=== PATIENT | male | born 1960 | race Caucasian/White ===

== ENCOUNTER 2022-10-02 22:54 | Inpatient (IN) | payer OTHER ==
[~2022-10-02] VITALS: Ht 170.2 cm; Wt 80.9 kg
[2022-10-02] MEDS ORDERED: ESCI5TAB PO (23:03)
[2022-10-02] MEDS ORDERED: OLAN2.5T3 PO (23:03)
[2022-10-02] MEDS ORDERED: BUPR174T PO (23:03)
[2022-10-02 23:20] LABS: HEMATOCRIT 27.5 % (36.7-47.1); MEAN CORPUSCULAR HEMOGLOBIN 31.2 uug (23.8-33.4); MEAN CORPUSCULAR VOLUME 91.9 fL (73.0-96.2); PLATELET COUNT (AUTO) 276 K/uL (152-348)
[2022-10-02 23:48] LABS: ALANINE AMINOTRANSFERASE 13 U/L (16-63); ALKALINE PHOSPHATASE 75 U/L (50-136); ASPARTATE AMINOTRANSFERASE 16 U/L (15-37); BILIRUBIN,DIRECT 0.2 mg/dL (0.0-0.2); BILIRUBIN,TOTAL 0.5 mg/dL (0.2-1.0); CARBON DIOXIDE 12 mmol/L (21-32); CHLORIDE 91 mmol/L (98-107); GLUCOSE 89 mg/dL (74-106); TOTAL PROTEIN, SERUM 7.6 g/dL (6.4-8.2)
--- NOTE | 2022-10-02 23:50 | NUR ---
Patient taken to CT via gurney.
[2022-10-02 23:51] LABS: POTASSIUM 6.6 mmol/L (3.5-5.1); UREA NITROGEN, BLOOD 217 mg/dL (7-18)
[2022-10-02 23:52] LABS: CREATININE 26.9 mg/dL (0.6-1.3)
[2022-10-03] MEDS ORDERED: INSULIN REGULAR, HUMAN 300 UNIT/3 ML VIAL IV ONE
[2022-10-03] MEDS ORDERED: CALCIUM GLUCONATE IV 1 GM in IV DEXTROSE 5% 50 ML IV ONE ×2
[2022-10-03] MEDS ORDERED: SODIUM BICARBONATE 4.2 % (NEUT) 5 ML VIAL IJ ONE
[2022-10-03] MEDS ORDERED: DEXTROSE 50% 50 ML DISP.SYRIN IV ONE
[2022-10-03] MEDS ORDERED: CALCIUM GLUCONATE 1 GM/10 ML VIAL IV ONE (00:06)
[2022-10-03] MEDS ORDERED: DEXTROSE 50% 50 ML DISP.SYRIN ONE (00:06)
[2022-10-03] MEDS ORDERED: INSULIN REGULAR, HUMAN 300 UNIT/3 ML VIAL ONE (00:06)
[2022-10-03 00:23] LABS: ACETAMINOPHEN < 2.0 ug/mL (10-30); CREATINE KINASE, TOTAL 139 U/L (39-308)
[2022-10-03 00:33] LABS: MAGNESIUM 2.7 mg/dL (1.8-2.4)
--- NOTE | 2022-10-03 00:33 | NUR ---
Per Dr. Blevins, Sodium Bicarbonate 4.2% 5ml vial order cancelled.
--- NOTE | 2022-10-03 00:35 | NUR ---
Per Dr. Blevins given verbal order to administer Sodium Bicarbonate 8.4% 50MEQ IV.
[2022-10-03] MEDS ORDERED: SODIUM BICARBONATE 8.4% 50 MEQ/50 ML DISP.SYRIN IV ONE ×4 (00:37→02:46)
--- NOTE | 2022-10-03 01:00 | NUR ---
Patient and patient's brother unable to recall home medications at this time.
--- NOTE | 2022-10-03 01:33 | NUR ---
Called [facility] for panel call. Waiting for call back. Pending admission
[2022-10-03] MEDS ORDERED: ONDANSETRON 4 MG/2 ML VIAL IV PRN (01:45)
[2022-10-03] MEDS ORDERED: MAGNESIUM HYDROXIDE 30 ML LIQUID UDC PO PRN (01:45)
[2022-10-03] MEDS ORDERED: REMEDY ESSENTIAL ZINC PASTE 113 GM TP PRN (01:45)
--- NOTE | 2022-10-03 01:57 | NUR ---
Rony annelulu in [facility] - 10/03/22 at 0207 by AZALIA Patient has been admitted to third floor [place] [id number]
[2022-10-03] MEDS ORDERED: SODIUM POLYSTYRENE SULFONATE 15 G/60 ML LIQUID UDC PO ONE (02:00)
--- NOTE | 2022-10-03 02:04 | NUR ---
Called for nephrology consult. Waiting for call back from Dr. Uribe.
--- NOTE | 2022-10-03 02:07 | NUR ---
Patient will need [facility] bed. Waiting call back from Industrial Cleaner Meryl KELLY for room.
[2022-10-03] MEDS ORDERED: IV NS 1000 ML 1,000 ML IV ONE (02:15)
--- NOTE | 2022-10-03 02:35 | NUR ---
Patient pulled out previous IV catheter. Placed a new IV catheter to right AC #20G
[2022-10-03] MEDS ORDERED: SODIUM POLYSTYRENE SULFONATE 15 G/60 ML LIQUID UDC ONE (02:46)
--- NOTE | 2022-10-03 03:37 | NUR ---
Report given to Camacho KELLY
--- NOTE | 2022-10-03 03:37 | NUR ---
Received admission report from ROSALIO Rosas nurse.
--- NOTE | 2022-10-03 03:38 | NUR ---
Patient has been admitted to room 316 Y[facility]ENIA
--- NOTE | 2022-10-03 03:54 | NUR ---
Patient sleepy unable to take Kayexalate PO. Dr. Blevins aware. Ordered cancelled per Dr. Blevins.
--- NOTE | 2022-10-03 04:20 | NUR ---
Patient arrived in the floor from ER via gurney accompanied by his brother at the bedside. Patient eyes closed, non verbal, not in respiratory distress. Transferred to bed with 3 people assist. Noted moderate amount of red blood stain in the linen due to HD catheter placement on right groin area. Bed bath rendered, tolerated well. Placed on cardiac monitoring as ordered showing SR 86bpm at this time. Routine admission care done. Plan of care initiated. Vs taken and recorded.
--- NOTE | 2022-10-03 04:28 | NUR ---
Patient taken to third floor room 316 via gurney with personal belongings accompanied by brother. Patient in stable condition, no signs of distress. Camacho RN aware of patients arrival.
[2022-10-03] MEDS: IV 1/2NS 1000 ML 1,000 ML IV PRN ×2 (05:19→19:05)
--- NOTE | 2022-10-03 05:26 | NUR ---
HD in progress as ordered.
[2022-10-03 06:19] VITALS: BP 110/64
[2022-10-03 07:21] LABS: POTASSIUM 3.5 mmol/L (3.5-5.1)
--- NOTE | 2022-10-03 07:52 | NUR ---
Lethargic. Hemodialysis just finished, with 2 L output. Tele SR
[2022-10-03 07:58] VITALS: BP 108/81
[2022-10-03 08:55] LABS: CREATININE 19.7 mg/dL (0.6-1.3)
[2022-10-03 09:57] VITALS: BP 138/57
--- NOTE | 2022-10-03 11:00 | NUR ---
More awake, assisted to bedside commode as requested but no BM. Sponge bath given. Assisted back to bed. Brother at bedside. Bed alarm on.
[2022-10-03 12:10] VITALS: BP 149/83
--- NOTE | 2022-10-03 12:30 | NUR ---
Encouraged po intake. Able to feed himself
--- NOTE | 2022-10-03 14:00 | NUR ---
Continent, attempted to get up, urinal provided, voided freely.
[2022-10-03 16:00] VITALS: BP 145/77
--- NOTE | 2022-10-03 18:43 | NUR ---
Eating dinner. Awake, alert, oriented x 2. Room air. Not in distress.
--- NOTE | 2022-10-03 19:30 | NUR ---
Received in bed, brother at bedside, no sob no chest pain, tele sinus rhythm at this time, Patient sleep intermitently, patient appear calms, and cooperative with care, right femoral perma cath dressing intact, assisted with toileting, cont to monitor.
[2022-10-03 20:00] VITALS: BP 131/76
--- NOTE | 2022-10-03 23:00 | NUR ---
Patient in bed noted with restlessness, appear having anxiety, episode of shaking, asked patient if he's juana, Explained to patient that he appear to having anxiety/nervous about something, patient stated he does not to take any medications, assisted with toileting, call light within reach.
[2022-10-04] VITALS: BP 132/78
[2022-10-04 04:00] VITALS: BP 140/77
[2022-10-04] MEDS: IV 1/2NS 1000 ML 1,000 ML IV PRN ×4 (04:00→22:48)
[2022-10-04 07:30] LABS: BILIRUBIN,TOTAL 0.5 mg/dL (0.2-1.0); MAGNESIUM 2.2 mg/dL (1.8-2.4); POTASSIUM 5.3 mmol/L (3.5-5.1)
[2022-10-04 07:58] LABS: MEAN CORPUSCULAR HEMOGLOBIN 31.7 uug (23.8-33.4)
[2022-10-04 08:00] VITALS: BP_SYST 120; BP_SYST 133; BP_DIAS 66; BP_DIAS 71
[2022-10-04 08:00] LABS: MEAN CORPUSCULAR VOLUME 90.8 fL (73.0-96.2); PLATELET COUNT (AUTO) 175 K/uL (152-348)
--- NOTE | 2022-10-04 08:00 | NUR ---
Received patient lying on bed, awake, alert and responding to simple question like name, date. With ongoing IVF of 1/2 NS @ 120cc/hr. on renal diet. Denies any pain and discomfort. Seen by Dr. Hooper. for possible dialysis today, awaiting lab results.
[2022-10-04 08:20] LABS: HEMATOCRIT 20.9 % (36.7-47.1)
[2022-10-04 08:21] LABS: CREATININE 19.8 mg/dL (0.6-1.3); PHOSPHOROUS 11.4 mg/dL (2.5-4.9)
--- NOTE | 2022-10-04 08:30 | NUR ---
Relayed 5 critical laboratory results to Dr. Menendez, continue current treatments.
[2022-10-04 10:39] LABS: *BILIRUBIN,URIN NEGATIVE (NEGATIVE); *BLOOD, URINE 2+ (NEGATIVE); *CLARITY,URINE CLEAR (CLEAR); *COLOR,URINE YELLOW (YELLOW); *KETONES,URINE 2+ (NEGATIVE); *UROBILINOGEN,URINE 0.2 E.U./dl (NORMAL); LEUKOCYTE ESTERASE ,URINE 1+ (NEGATIVE); NITRITE, URINE NEGATIVE (NEGATIVE); PH,URINE 5.5 (5.0-8.0); UGLUCOSE NEGATIVE (NEGATIVE)
[2022-10-04 11:10] LABS: *CREATININE,URINE 59.4 mg/dL (30-125); *URINE TOTAL PROTEIN RANDOM 66.3 mg/dL (<150/24HR)
[2022-10-04 11:26] LABS: *AMPHETAMINE, URINE NEGATIVE (NEGATIVE); *CANNABINOID, URINE NEGATIVE (NEGATIVE); *COCCAINE, URINE NEGATIVE (NEGATIVE); *PHENCYCLIDINE SCREEN,URINE NEGATIVE (NEGATIVE)
--- NOTE | 2022-10-04 12:00 | NUR ---
Awaiting for dialysis, supervisor putty and caluking on duty made aware. Seen and examined by Dr. Brown
[2022-10-04] MEDS: SEVELAMER CARBONATE 800 MG TABLET PO SCH ×2 (13:36→18:00)
[2022-10-04 16:00] VITALS: BP 116/56
--- NOTE | 2022-10-04 17:00 | NUR ---
Patient remains confused, trying to remove IV lines and dialysis catheter.
--- NOTE | 2022-10-04 17:30 | NUR ---
Applied mittens of patient's both hands, observed patient accordingly. Needs attended
[2022-10-04 18:10] LABS: RBC,URINE 20-50 /HPF (0-3)
[2022-10-04 18:11] LABS: BACTERIA,URINE FEW /HPF (NONE SEEN); SQUAMOUS EPITHELIAL CELL,UR NONE SEEN /HPF (NONE SEEN)
[2022-10-04] MEDS ORDERED: MANNITOL 25% 12.5 G/50 ML VIAL IV ONE (18:30)
--- NOTE | 2022-10-04 18:53 | NUR ---
Started hemo dialysis at bedside and mannitol given at the start of HD as ordered.
--- NOTE | 2022-10-04 19:58 | NUR ---
rounds made patient in bed having dialysis , spoked with dialysis nurse and as per Zeeshan patient is tolerating HD .
[2022-10-04 20:00] VITALS: BP 144/116
--- NOTE | 2022-10-04 21:40 | NUR ---
patient tolerated HD with 2L fluid removal . V/S WNL SEE HD FLOW SHEET.
--- NOTE | 2022-10-04 21:50 | NUR ---
patient incontinent of stool changed soiled linens ,gown and diaper . patient had large form brownish colored stool .
--- NOTE | 2022-10-04 23:00 | NUR ---
patient in bed awake,alert x1 , patient able to follow simple commands and verbally responsive . when asked patient denies pain no s/s of discomfort no respiratory distress noted breathing even and unlabored on room air .call Light placed with in reach and urinal placed with in reach advised patient to call for assistance.
[2022-10-05] VITALS (8 sets, daily range): BP systolic 96–142; BP diastolic 55–78
[2022-10-05] MEDS: ACETAMINOPHEN 325 MG TABLET PO PRN ×2 (03:40→21:36)
--- NOTE | 2022-10-05 03:40 | NUR ---
given TYLENOL C/O temp 99.7 F orally , patient took medication with applesauce and sips of water .
[2022-10-05 07:25] LABS: BILIRUBIN,TOTAL 0.5 mg/dL (0.2-1.0); MAGNESIUM 1.8 mg/dL (1.8-2.4); PHOSPHOROUS 6.9 mg/dL (2.5-4.9); POTASSIUM 3.9 mmol/L (3.5-5.1); TOTAL PROTEIN, SERUM 5.7 g/dL (6.4-8.2)
--- NOTE | 2022-10-05 07:42 | NUR ---
Received patient on bed awake, alert, answered simple questions and follows simple commands. With ongoing IVF 1/2 NS @ 75cc/hr on renal standard diet, with mittens on both hands. Observed and assessed.
[2022-10-05 07:59] LABS: MEAN CORPUSCULAR HEMOGLOBIN 31.7 uug (23.8-33.4); MEAN CORPUSCULAR VOLUME 89.9 fL (73.0-96.2); PLATELET COUNT (AUTO) 165 K/uL (152-348)
[2022-10-05 08:10] LABS: CREATININE 13.5 mg/dL (0.6-1.3)
--- NOTE | 2022-10-05 09:50 | NUR ---
Seen and examined by Dr. Brown, with orders made and carried out. Patient for dialysis and blood transfusion recent hgb results is 6.7, MD made aware.
[2022-10-05] MEDS: SEVELAMER CARBONATE 800 MG TABLET PO SCH ×3 (10:23→17:36)
--- NOTE | 2022-10-05 12:25 | NUR ---
Started hemo dialysis at bedside. Observed accordingly.
[2022-10-05] MEDS: IV 1/2NS 1000 ML 1,000 ML IV PRN (12:30)
[2022-10-05 13:06] LABS: A/G RATIO 0.9 (0.7-1.7); ALBUMIN 2.6 g/dL (2.9-4.4); ALPHA-1-GLOBULIN 0.3 g/dL (0.0-0.4); ALPHA-2-GLOBULIN 0.7 g/dL (0.4-1.0); BETA GLOBULIN 0.7 g/dL (0.7-1.3); GAMMA GLOBULIN 1.1 g/dL (0.4-1.8); GLOBULIN, TOTAL 2.9 g/dL (2.2-3.9); M-SPIKE Not Observed g/dL (Not Observed)
--- NOTE | 2022-10-05 14:02 | NUR ---
Blood transfusion started through dialysis. Patient closely monitored for any blood reactions. Vital signs taken and recorded.
--- NOTE | 2022-10-05 14:33 | NUR ---
Completed blood transfusion via dialysis, no reaction noted. Monitored patient accordingly. Vitals taken and recorded. Seen and examined by Dr. Hooper, ordered to continue home medications.
--- NOTE | 2022-10-05 14:55 | NUR ---
HEMODIALYSIS COMPLETED AND REMOVED 1500 OF FLUID. VITAL SIGNS STABLE TOLERATED HD WELL
[2022-10-05] MEDS ORDERED: BUPR174T PO (15:34)
--- NOTE | 2022-10-05 15:45 | NUR ---
PATIENT PULLED CUSTODIAL MIN CATH RIGHT GROIN, FIBER GLASS WORKER NOTIFIED AND WILL NOTIFY THE TEAM. PATIENT CLOSELY MONITORED FOR SAFETY. BROTHER AT BEDSIDE AND AGREED PATIENT TO HAVE MITTENS IF NEEDED. DR SCHAEFER AROUND AND AWARE
--- NOTE | 2022-10-05 17:48 | NUR ---
DONNA BELL FROM IV TEAM WILL COME AT 11;00 PM FOR REINSERTION
--- NOTE | 2022-10-05 20:00 | NUR ---
Received patient lying in bed. AAOx1-2 with periods of confusion. In no acute distress. Denies any pain or SOB. IV on right AC intact and patent. IVF infusing. NSR on tele with HR of 90/min. Steve cath on right groin area. Hand mittens released at this time. No behavioral issues noted at this time. Will continue to monitor. Safety measure initiated and call light within reached.
[2022-10-05] MEDS: OLANZAPINE 5 MG TABLET PO SCH (20:19)
[2022-10-05] MEDS: ESCITALOPRAM OXALATE 10 MG TABLET PO SCH (20:19)
[2022-10-05 22:01] LABS: LYMPHOCYTES % (MANUAL) 13 % (20-40); MONOCYTES % (MANUAL) 9 % (2-10); NEUTROPHILS % (MANUAL) 78 % (42-75)
[2022-10-06] VITALS (7 sets, daily range): BP systolic 87–128; BP diastolic 47–79
--- NOTE | 2022-10-06 01:48 | NUR ---
Rakan KELLY Spoke to patient's brother Ed and obtain consent for Dialysis catheter replacement, witnessed by this nurse and ROBIN Guerrero. Rakan KELLY placed new Steve catheter on right groin area.
[2022-10-06] MEDS: IV 1/2NS 1000 ML 1,000 ML IV PRN ×2 (04:31→17:02)
--- NOTE | 2022-10-06 05:24 | NUR ---
Sleeping at this time. No complain of pain or SOB. IVF infusing. NSR on tele with HR of 82/min. No behavioral issues noted. Mittens released through put the night. Needs assessed and attended to. Safety measure maintained and call light within reached.
[2022-10-06 06:55] LABS: HEMATOCRIT 22.7 % (36.7-47.1); MEAN CORPUSCULAR HEMOGLOBIN 31.4 uug (23.8-33.4); MEAN CORPUSCULAR VOLUME 91.3 fL (73.0-96.2); PLATELET COUNT (AUTO) 151 K/uL (152-348)
[2022-10-06 07:15] LABS: POTASSIUM 3.2 mmol/L (3.5-5.1)
--- NOTE | 2022-10-06 07:40 | NUR ---
SEEN BY DR CASTRO FOR F/U PATIENT STATUS CHANGE TO MED/SURG
[2022-10-06 08:06] LABS: COMPLEMENT, C3 SERUM 89 mg/dL (82-167); COMPLEMENT, C4 SERUM 40 mg/dL (12-38)
[2022-10-06 08:30] LABS: CREATININE 8.1 mg/dL (0.6-1.3)
[2022-10-06] MEDS: SEVELAMER CARBONATE 800 MG TABLET PO SCH ×3 (08:37→16:40)
[2022-10-06] MEDS: buPROPion SR 150 MG TABLET.SA PO SCH (08:37)
--- NOTE | 2022-10-06 09:30 | NUR ---
SEEN BY DR EDUARDO MADE AWARE OF CRITICAL LAB RESULTS AND SAID HD TOMORROW
[2022-10-06 13:07] LABS: *ANTI-SCLERODERMA-70 AB <0.2 AI (0.0-0.9); *SJOGREN'S ANTI-SS-A <0.2 AI (0.0-0.9); *SJOGREN'S ANTI-SS-B <0.2 AI (0.0-0.9); *SMITH ANTIBODIES <0.2 AI (0.0-0.9); ANTI-DNA(DS) AB, QN 1 IU/mL (0-9)
[2022-10-06] MEDS: ENSURE ENLIVE (VAN) 240 ML LIQUID PO SCH ×2 (13:48→16:42)
--- NOTE | 2022-10-06 14:03 | NUR ---
PATIENT MORE ALERT AND RESPONDING APPROPRIATELY WITH SIMPLE QUESTIONS APPROPRIATELY. INDEPENDENT WITH MEALS NO SS OF PAIN OR DISTRESS
[2022-10-06 14:06] LABS: ALBUMIN 2.7 g/dL (2.9-4.4); ALPHA-1-GLOBULIN 0.3 g/dL (0.0-0.4); ALPHA-2-GLOBULIN 0.9 g/dL (0.4-1.0); BETA GLOBULIN 0.8 g/dL (0.7-1.3); GAMMA GLOBULIN 0.6 g/dL (0.4-1.8); GLOBULIN, TOTAL 2.6 g/dL (2.2-3.9); HEPATITIS B SURFACE AG Negative (Negative); M-SPIKE Not Observed g/dL (Not Observed)
[2022-10-06] MEDS ORDERED: IV NORMAL SALINE 500 ML BAG IV ONE (20:45)
[2022-10-06] MEDS: OLANZAPINE 5 MG TABLET PO SCH (21:00)
[2022-10-06] MEDS: ESCITALOPRAM OXALATE 10 MG TABLET PO SCH (21:00)
[2022-10-07 05:46] VITALS: BP 106/54
--- NOTE | 2022-10-07 08:00 | NUR ---
Received patient on bed awake, alert and oriented with ongoing IVF of 1/2 NS at 75 cc/hr infusing well. Denies any pain and discomfort. Kept patient comfortable. Medications tolerated well.
[2022-10-07 08:08] LABS: HEMATOCRIT 23.3 % (36.7-47.1); MEAN CORPUSCULAR HEMOGLOBIN 31.2 uug (23.8-33.4); MEAN CORPUSCULAR VOLUME 92.2 fL (73.0-96.2); PLATELET COUNT (AUTO) 139 K/uL (152-348)
[2022-10-07 08:21] LABS: BILIRUBIN,TOTAL 0.3 mg/dL (0.2-1.0); POTASSIUM 3.3 mmol/L (3.5-5.1); TOTAL PROTEIN, SERUM 5.3 g/dL (6.4-8.2)
[2022-10-07 08:24] LABS: CREATININE 9.4 mg/dL (0.6-1.3)
[2022-10-07] MEDS: buPROPion SR 150 MG TABLET.SA PO SCH (08:30)
[2022-10-07] MEDS: ENSURE ENLIVE (VAN) 240 ML LIQUID PO SCH (08:31)
[2022-10-07] MEDS: SEVELAMER CARBONATE 800 MG TABLET PO SCH ×3 (08:31→18:09)
[2022-10-07] MEDS: IV 1/2NS 1000 ML 1,000 ML IV PRN (08:37)
[2022-10-07 11:40] VITALS: BP 130/70
--- NOTE | 2022-10-07 14:28 | NUR ---
Seen patient asleep on bed, resting comfortably. IVF infusing well, no signs of distress SR on tele monitor at 89 bpm. No changes from morning assessment. Observed accordingly
[2022-10-07 16:30] VITALS: BP 134/71
[2022-10-07] MEDS: NEPRO (VANILLA) 237 ML CAN PO SCH (17:04)
--- NOTE | 2022-10-07 17:47 | NUR ---
AWAITING HD FOR TONIGHT. PATIENT MORE AWAKE AND VERBALLY RESPONSIVE, DENIES PAIN OR ANY DISTRESS.
--- NOTE | 2022-10-07 18:46 | NUR ---
Started hemo dialysis at bedside as ordered. Kept patient monitored.
--- NOTE | 2022-10-07 19:00 | NUR ---
PATIENT TEMP 102 ORALLY DURING HD. SENT AND WILL NOTIFY DR SCHAEFER
[2022-10-07] MEDS ORDERED: DOSING BY PHARMACY-MD TO SPECIFY MED/ROUTE XX PRN (19:45)
[2022-10-07] MEDS: PIPERACILLIN/TAZO 2.25 G in IV DEXTROSE 5% 50 ML IV SCH (20:00)
[2022-10-07] MEDS: ACETAMINOPHEN 325 MG TABLET PO PRN (20:28)
[2022-10-07] MEDS: OLANZAPINE 5 MG TABLET PO SCH (20:29)
[2022-10-07] MEDS: ESCITALOPRAM OXALATE 10 MG TABLET PO SCH (20:29)
[2022-10-07 20:33] VITALS: BP 136/93
[2022-10-07] MEDS ORDERED: VANCOMYCIN IV 1,500 MG in IV DEXTROSE 5% 500 ML IV ONE (21:00)
[2022-10-07] MEDS ORDERED: PIPERACILLIN/TAZOBACTAM/D5W 50 ML ONE ×2 (22:17)
[2022-10-07] MEDS ORDERED: VANCOMYCIN 1000 MG VIAL ONE (22:18)
[2022-10-07] MEDS ORDERED: VANCOMYCIN HCL 500 MG VIAL ONE (22:18)
[2022-10-08] MEDS ORDERED: LEVOFLOXACIN 250 MG IV ONE (01:01)
[2022-10-08] MEDS ORDERED: D5W IV ONE (01:01)
[2022-10-08 04:48] VITALS: BP 105/52
[2022-10-08] MEDS: PIPERACILLIN/TAZO 2.25 G in IV DEXTROSE 5% 50 ML IV SCH ×3 (04:55→20:35)
[2022-10-08 07:26] LABS: HEMATOCRIT 22.4 % (36.7-47.1); MEAN CORPUSCULAR HEMOGLOBIN 31.4 uug (23.8-33.4); MEAN CORPUSCULAR VOLUME 92.8 fL (73.0-96.2); PLATELET COUNT (AUTO) 119 K/uL (152-348)
[2022-10-08 07:27] LABS: CREATININE 6.2 mg/dL (0.6-1.3); POTASSIUM 3.1 mmol/L (3.5-5.1)
--- NOTE | 2022-10-08 08:00 | NUR ---
Received patient asleep on bed, resting comfortably. With ongoing IVF 1/2 NS @ 75 cc/hr infusing well. Patient on room air saturating at 96-98%. Keep monitored
[2022-10-08] MEDS: buPROPion SR 150 MG TABLET.SA PO SCH (08:57)
[2022-10-08] MEDS: NEPRO (VANILLA) 237 ML CAN PO SCH ×2 (08:58→17:34)
[2022-10-08] MEDS: SEVELAMER CARBONATE 800 MG TABLET PO SCH ×3 (08:58→17:30)
--- NOTE | 2022-10-08 09:00 | NUR ---
Seen and examined by Dr. Brown, continue care plan. observed patient accordingly
--- NOTE | 2022-10-08 09:30 | NUR ---
PATIENT REASSIGNMENT RECEIVED PATIENT TO MY CARE AT THIS TIME.PATIENT IS AWAKE ALERT SOFT SPOKEN WHEN ASKED HOW HE FELT STATED WAS OKAY JUST FELT WEAK.ON ROOM AIR WITH NO SHORTNESS OF BREATH IVF IN PROGRESS ORDERED WITH NO S/S OF INFILTERATION AT THIS TIME RIGHT GROIN WITH MIN CATH INTACT DENIES PAIN OR DISCOMFORTS CALL LIGHTS AND PERSONAL BELONGINGS ARE WITHIN EASY REACH MADE COMFORTABLE AND WILL CONTINUE TO OBSERVE.
[2022-10-08] MEDS: ACETAMINOPHEN 325 MG TABLET PO PRN ×2 (09:34→17:29)
[2022-10-08 09:35] VITALS: BP 104/37
--- NOTE | 2022-10-08 09:46 | NUR ---
Taken patient's vital signs temp 101.5 orally, Acetaminophen 650mg tab given PO as ordered.
[2022-10-08 11:32] VITALS: BP 98/44
[2022-10-08 14:00] VITALS: BP_SYST 88; BP_SYST 91; BP_SYST 92; BP_SYST 98; BP_DIAS 43; BP_DIAS 51; BP_DIAS 56; BP_DIAS 58
--- NOTE | 2022-10-08 15:00 | NUR ---
CALLED PATIENTS BROTHER ED RE NEED CONSCENT FOR THE ULTRA SOUND GUIDED NEEDLE BIOPSY PATIENT IS NOT ABLE TO SIGN DID NOT SEEN TO BE FULLY ALERT AD STATED THAT HE NEEDED TO TALK WITH DR EDUARDO FIRST BEFORE HE COULD CONSCENT.
[2022-10-08 16:00] VITALS: BP 110/55
--- NOTE | 2022-10-08 16:00 | NUR ---
ED HERE AND STATED THAT HE CALLED DR EDUARDO AND HAS LEFT HIM A MESSAGE THAT HE IS WAITING FOR A RETURN CALL.
--- NOTE | 2022-10-08 17:30 | NUR ---
TEMP IS 101.1 AT THIS TIME MEDICATED WITH TYLENOL ORDERED COOLING MEASURES FLUIDS ENCOURAGED.
[2022-10-08] MEDS: IV 1/2NS 1000 ML 1,000 ML IV PRN (17:35)
--- NOTE | 2022-10-08 18:36 | NUR ---
PATIENT IS RESTING IN BED AWAKE ALERT ORIENTED BUT SOMEWHAT OFF IN HIS DECISION MAKING FOR EXAMPLE WANTS MORE BLANKETS BECAUSE HE HAS A FEVER PATIENT REEDUCATED THAT HE NEEDS TO AIR OUT HIS BODY TO ASSIST IN GETTING RID OF THE FEVER.HE ALSO WANTS A DIAPER EVEN THOUGH HE IS CONTINENT STATED HE JUST WANTS TO WEAR ON SO A DIAPER WAS PLACED ON HIM PATIENT MADE COMFORTABLE AND WILL CONTINUE TO OBSERVE AND PROVIDE COMFORT.
[2022-10-08 20:00] VITALS: BP 101/55
--- NOTE | 2022-10-08 20:00 | NUR ---
patient temp 101.5 F ICE PACKS applied to forehead and bilateral armpit patient Tylenol prn for fever not due yet its was given 3 hours ago its every 6 hours .
[2022-10-08] MEDS: OLANZAPINE 5 MG TABLET PO SCH (20:35)
[2022-10-08] MEDS: ESCITALOPRAM OXALATE 10 MG TABLET PO SCH (20:35)
--- NOTE | 2022-10-08 20:35 | NUR ---
patient in bed awake and alert , patient able to verbalized needs and able to answer questions patient is coherent and aware about the procedure in am he said he is for CT GUIDED BX as per the day shift RN patient brother wants to speak with the doctor and consent is not sign until he speak with the doctor .
--- NOTE | 2022-10-08 23:10 | NUR ---
telephone consent signed by patient brother for u/s guided Needle biopsy of the kidney to renal failure . witness with another rn placed in chart .
[2022-10-09] MEDS: ACETAMINOPHEN 325 MG TABLET PO PRN ×2 (00:30→20:45)
--- NOTE | 2022-10-09 00:30 | NUR ---
Tylenol prn for fever given temp 101.F patient able to swallow medication with water .
[2022-10-09 04:00] VITALS: BP 111/57
[2022-10-09] MEDS: PIPERACILLIN/TAZO 2.25 G in IV DEXTROSE 5% 50 ML IV SCH ×3 (04:35→21:59)
[2022-10-09 07:07] LABS: POTASSIUM 2.9 mmol/L (3.5-5.1)
--- NOTE | 2022-10-09 07:37 | NUR ---
RECEIVED PATIENT IN BED ASLEEP BUT EASILY AROUSABLE ON ROUNDS ON IVF ORDERED WITH NO S/S OF INFILTERATION ON SITE LEFT UPPER ARM MIDLINE INTACT AFEBRILE AT THIS TIME CALL LIGHT AND PERSONAL BELONGINGS ARE WITHIN EASY REACH WILL CONTINUE TO OBSERVE.
[2022-10-09] MEDS: buPROPion SR 150 MG TABLET.SA PO SCH (08:15)
[2022-10-09] MEDS: SEVELAMER CARBONATE 800 MG TABLET PO SCH ×3 (08:15→17:58)
[2022-10-09 08:16] LABS: MEAN CORPUSCULAR HEMOGLOBIN 31.4 uug (23.8-33.4); MEAN CORPUSCULAR VOLUME 92.9 fL (73.0-96.2); PLATELET COUNT (AUTO) 102 K/uL (152-348)
[2022-10-09] MEDS: IV 1/2NS 1000 ML 1,000 ML IV PRN (08:21)
[2022-10-09 08:47] LABS: HEMATOCRIT 19.3 % (36.7-47.1)
[2022-10-09 08:49] LABS: CREATININE 7.8 mg/dL (0.6-1.3)
--- NOTE | 2022-10-09 08:50 | NUR ---
CALL RECEIVED FROM THE LAB H/H 6.5/19.[address] SCHAEFER WITH ORDERS AND NOTED.
[2022-10-09] MEDS: NEPRO (VANILLA) 237 ML CAN PO SCH ×2 (09:55→17:00)
[2022-10-09 11:32] VITALS: BP 102/44
--- NOTE | 2022-10-09 13:52 | NUR ---
Renal Bx scheduled for tmrw afternoon with Noa Sanchez notified.
--- NOTE | 2022-10-09 14:01 | NUR ---
ULTRA SOUND TECH HERE AND STATED THAT THE NEEDLE BIOPSY OF THE KIDNEY WILL BE DONE TOMORROW AND NOTED.
--- NOTE | 2022-10-09 14:26 | NUR ---
CALL RECEIVED FROM LAB STATED THAT PATIENT HAS ANTIBODIES AND WILL NEED TO GET BLOOD FOR THIS PATIENT FROM THE [facility] WILL WAIT FOR THE BLOOD TO BE READY
[2022-10-09 16:00] VITALS: BP 100/58
--- NOTE | 2022-10-09 16:50 | NUR ---
RECEIVED RESULTS FROM THE LAB OF POSITIVE BLOOD CULTURES IN BOTH BOTTLES [facility] IN [place] [address] SCHAEFER AND HE STATED ITS OKAY PATIENT IS ALREADY ON VANCOMICIN AND ALS STATED WILL CALL MELISSA MEYER TO SEE PATIENT.
[2022-10-09] MEDS ORDERED: VANCOMYCIN IV 500 MG in IV DEXTROSE 5% 100 ML IV ONE (18:00)
--- NOTE | 2022-10-09 18:02 | NUR ---
PATIENT REFUSED TO EAT DINNER AND SUCH WAS UNABLE TO GIVE HER THE RENVE[facility] MEDS ORDERED SINCE HE IS SUPPOSED TO TAKE THE PILLS WITH FOOD.PIGMENT PRESSER HERE AND IS STARTING DIALYSIS.CALLED THE LAB FOR THE BLOOD TRANSFUSSION ORDERED WITH DIALYSIS BUT PER BRANDON THE TECH THE BLOOD HAS ANTIBODIES AND IS SENT TO [facility] WILL NOT BE AVAILABLE UNTIL ITS RELEASED FROM THE [facility].THE PIGMENT PRESSER AWARE THAT THE POTASSIUM LEVEL IS 2.9 AND STATED WILL REPLACE WITH THE K BATH DURING DIALYSIS.
--- NOTE | 2022-10-09 18:24 | NUR ---
DIALYSIS IS IN PROGRESS AT THIS TIME ENDORSED.
[2022-10-09 20:00] VITALS: BP 141/92
--- NOTE | 2022-10-09 20:00 | NUR ---
RECEIVED PATIENT AWAKE IN BED, RECEIVING DIALYSIS.
[2022-10-09] MEDS: OLANZAPINE 5 MG TABLET PO SCH (20:44)
[2022-10-09] MEDS: ESCITALOPRAM OXALATE 10 MG TABLET PO SCH (20:45)
--- NOTE | 2022-10-09 20:46 | NUR ---
DIALYSIS COMPLETE. Addendum: 10/09/22 at 2107 by DENNY BASS LVN 2L REMOVED.
--- NOTE | 2022-10-09 20:47 | NUR ---
PATIENT GIVEN TYLENOL 650MG PO PRN FOR TEMP 100.9. WILL CONTINUE TO MONITOR AND ASSESS.
[2022-10-10] MEDS: IV 1/2NS 1000 ML 1,000 ML IV PRN ×2 (02:11→17:01)
[2022-10-10 04:00] VITALS: BP 121/57
[2022-10-10] MEDS: PIPERACILLIN/TAZO 2.25 G in IV DEXTROSE 5% 50 ML IV SCH ×3 (04:26→20:52)
[2022-10-10 07:00] LABS: MEAN CORPUSCULAR HEMOGLOBIN 31.5 uug (23.8-33.4); MEAN CORPUSCULAR VOLUME 92.2 fL (73.0-96.2); PLATELET COUNT (AUTO) 120 K/uL (152-348)
[2022-10-10 07:17] LABS: CREATININE 5.7 mg/dL (0.6-1.3); POTASSIUM 3.1 mmol/L (3.5-5.1)
--- NOTE | 2022-10-10 07:30 | NUR ---
RECEIVED PATIENT ASLEEP BUT IS EASILY AROUSABLE ON ROUNDS DENIES PAIN OR DISCOMFORTS AT THIS TIME AFEBRILE ON ROOM AIR WITH NO SOB REMAIN ON IVF AND IVATB WITH NO S/S OF INFILTERATION OR ADVERSE OR ALLERGIC REACTIONS AT THIS TIME CALL LIGHTS AND PERSONAL BELONGINGS ARE WITHIN EASY REACH MADE COMFORTABLE WILL CONTINUE TO OBSERVE.
[2022-10-10 08:44] LABS: HEMATOCRIT 18.5 % (36.7-47.1)
--- NOTE | 2022-10-10 08:45 | NUR ---
RECEIVED CALL FROM THE LAB ABNORMAL RESULTS H/H 6.3/18.5 PATIENT HAS AN ORDER FOR ONE UNIT OF BLOOD BUT HAS BEEN UNABLE TO GIVE IT TO HIM BECAUSE THE BLOOD IS NOT AVAILABLE DUE TO THE FACT THAT THE BLOOD HAS ANTIBODIES.
[2022-10-10] MEDS: buPROPion SR 150 MG TABLET.SA PO SCH (08:47)
[2022-10-10] MEDS: SEVELAMER CARBONATE 800 MG TABLET PO SCH ×3 (08:47→17:42)
[2022-10-10] MEDS: NEPRO (VANILLA) 237 ML CAN PO SCH ×2 (09:07→17:42)
--- NOTE | 2022-10-10 09:30 | NUR ---
PATIENT TAKEN DOWN TO RADIOLOGY FOR CT ABD/PELVIS/CHEST WITH NO CONTRAST ORDERED AND BACK TO HIS ROOM
--- NOTE | 2022-10-10 10:00 | NUR ---
PER POST ANESTHESIA CARE UNIT RN ULTRA SOUND NEEDLE BIOPSY WILL NOT BE DONE TODAY PLANNED DUE TO HEMOGLOBIN MUST BE AT LEAST 8 AND ITS 6.3 TODAY PATIENT MUST BE NPO FOR AT LEAST 8 HOURS POTASSIUM LEVEL MUST BE WNL STATED THESE DECISIONS CAME FROM THE ANESTHESIOLOGIST DR NEGRETE
[2022-10-10 11:39] VITALS: BP 98/53
[2022-10-10 11:55] LABS: EOSINOPHILS % (MANUAL) 1 % (0-8); LYMPHOCYTES % (MANUAL) 13 % (20-40); MONOCYTES % (MANUAL) 12 % (2-10); NEUTROPHILS % (MANUAL) 74 % (42-75)
[2022-10-10 13:17] LABS: EOSINOPHILS % (MANUAL) 2 % (0-8); LYMPHOCYTES % (MANUAL) 13 % (20-40); MONOCYTES % (MANUAL) 6 % (2-10); NEUTROPHILS % (MANUAL) 79 % (42-75)
[2022-10-10 15:57] VITALS: BP 104/65
--- NOTE | 2022-10-10 18:00 | NUR ---
DR FRANCO HERE SEEN PATIENT WITH NO NEW ORDERS AT THIS TIME.
[2022-10-10 20:34] VITALS: BP 109/62
[2022-10-10] MEDS: ESCITALOPRAM OXALATE 10 MG TABLET PO SCH (20:52)
[2022-10-10] MEDS: OLANZAPINE 5 MG TABLET PO SCH (20:52)
--- NOTE | 2022-10-10 20:52 | NUR ---
PATIENT IN BED ALERT AND AWAKE ,PATIENT DENIES ANY PAIN OR DISCOMFORT .GIVEN PATIENT MEDICATION AND TOOK MEDICATION WITH SIPS OF WATER .
[2022-10-11] VITALS (10 sets, daily range): BP systolic 107–139; BP diastolic 59–74
[2022-10-11] MEDS: PIPERACILLIN/TAZO 2.25 G in IV DEXTROSE 5% 50 ML IV SCH ×3 (03:32→20:03)
--- NOTE | 2022-10-11 06:00 | NUR ---
PATIENT CALLED AND ESCORTED TO THE BATHROOM PATIENT STEADY OF GAIT ABLE TO WALK TO THE BATHROOM WITH HAND HELD ASSIST .PATIENT VERBALIZED HE URINATED AND HAD A MODERATE LOOSE BM . BACK TO BED ,.
[2022-10-11] MEDS: IV 1/2NS 1000 ML 1,000 ML IV PRN (06:15)
[2022-10-11 07:28] LABS: MEAN CORPUSCULAR HEMOGLOBIN 31.1 uug (23.8-33.4); PLATELET COUNT (AUTO) 144 K/uL (152-348)
[2022-10-11 07:31] LABS: HEMATOCRIT 20.1 % (36.7-47.1)
--- NOTE | 2022-10-11 07:42 | NUR ---
RECEIVED PATIENT AWAKE ALERT AND ORIENTED DENIES PAIN OR DISCOMFORTS AT THIS TIME PATIENT REMAINS NPO PENDING DECISION RE KIDNEY BIOPSY TODAY DENIES PAIN OR DISCOMFORTS REMAIN ON IVF ORDERED WITH NO S/S OF INFILTERATION ON SITE CALL LIGHTS AND PERSONAL BELONGINGS ARE WITHIN EASY REACH AT THIS TIME WILL CONTINUE TO OBSERVE.
[2022-10-11] MEDS: SEVELAMER CARBONATE 800 MG TABLET PO SCH ×3 (09:28→18:28)
[2022-10-11] MEDS: buPROPion SR 150 MG TABLET.SA PO SCH (09:28)
[2022-10-11] MEDS: NEPRO (VANILLA) 237 ML CAN PO SCH ×2 (09:28→16:40)
[2022-10-11 11:19] LABS: THYROID STIMULATING HORMONE 1.874 mIU/mL (0.358-3.740)
--- NOTE | 2022-10-11 12:20 | NUR ---
CALL RECEIVED FROM LAB SPOKE WITH KARAN WHO STATED THAT THEY HAVE THE BLOOD AND CAN RELEASE IT SOON THEY CROSS MATCH PATIENT NOTIFIED HER THAT WE NEED TWO UNITS AND IT NEEDS TO BE TRANSFUSED TODAY DURING THE DIALYSIS CALLED AND SPOKE WITH TARYN THE SUPERVISOR [employer] AND NOTIFIED HIM THAT PATIENT NEEDS 2 UNITS OF BLOOD WITH TRANSFUSSION AND HE STATED OKAY WILL BE HERE ABOUT 1500 TODAY.
[2022-10-11 13:43] LABS: POTASSIUM 3.2 mmol/L (3.5-5.1)
[2022-10-11 13:44] LABS: BILIRUBIN,TOTAL 0.2 mg/dL (0.2-1.0); CREATININE 7.1 mg/dL (0.6-1.3); MAGNESIUM 1.9 mg/dL (1.8-2.4); PHOSPHOROUS 4.2 mg/dL (2.5-4.9); TOTAL PROTEIN, SERUM 4.7 g/dL (6.4-8.2)
--- NOTE | 2022-10-11 15:19 | NUR ---
HEEL BLACKER HERE TO START DIALYSIS CALLED THE BLOOD BANK RE WE NEED TO HAVE THE PATIENTS BLOOD RELEASED AND THEY STATED WORKING ON IT WILL BE READY IN ABOUT 30 MINS.
--- NOTE | 2022-10-11 16:30 | NUR ---
FIRST UNIT OF BLOOD COMPLETED WITH DIALYSIS WILL START THE SECOND UNIT IN A FEW NO ADVERSE EFFECTS THE DIALYSIS STILL IN PROGRESS.
--- NOTE | 2022-10-11 17:35 | NUR ---
SECOND UNIT OF BLOOD COMPLETED ORDERED WITH NO ADVERSE OR ALLERGIC REACTIONS AT THIS TIME.
--- NOTE | 2022-10-11 17:52 | NUR ---
DIALYSIS COMPLETED AND 2 LITERS REMOVED.
[2022-10-11 18:08] LABS: BAND % (MANUAL) 4 % (0-10)
[2022-10-11 18:09] LABS: LYMPHOCYTES % (MANUAL) 28 % (20-40); MONOCYTES % (MANUAL) 14 % (2-10)
[2022-10-11 18:10] LABS: EOSINOPHILS % (MANUAL) 4 % (0-8); NEUTROPHILS % (MANUAL) 50 % (42-75)
[2022-10-11] MEDS: OLANZAPINE 5 MG TABLET PO SCH (20:40)
[2022-10-11] MEDS: ESCITALOPRAM OXALATE 10 MG TABLET PO SCH (20:40)
[2022-10-12 03:56] VITALS: BP 109/61
[2022-10-12] MEDS: PIPERACILLIN/TAZO 2.25 G in IV DEXTROSE 5% 50 ML IV SCH ×3 (04:13→20:27)
[2022-10-12] MEDS: IV 1/2NS 1000 ML 1,000 ML IV PRN (04:25)
--- NOTE | 2022-10-12 06:53 | NUR ---
Patient slept well the whole night. NPO post midnight for possible needle biopsy of kidney. No adverse reaction noted from IV antibiotic. SHAKIR midline intact and patent. Needs assessed and attended to.
[2022-10-12 07:21] LABS: HEMATOCRIT 27.5 % (36.7-47.1); MEAN CORPUSCULAR VOLUME 86.3 fL (73.0-96.2); PLATELET COUNT (AUTO) 136 K/uL (152-348)
[2022-10-12 07:37] LABS: CREATININE 5.5 mg/dL (0.6-1.3); MAGNESIUM 1.8 mg/dL (1.8-2.4); PHOSPHOROUS 3.3 mg/dL (2.5-4.9); POTASSIUM 2.9 mmol/L (3.5-5.1)
[2022-10-12] MEDS: SEVELAMER CARBONATE 800 MG TABLET PO SCH ×3 (08:00→17:40)
--- NOTE | 2022-10-12 08:39 | NUR ---
Night team nurse request give hemoglobin and hematocrit result to operating room nurse for possible renal biopsy.
[2022-10-12] MEDS: NEPRO (VANILLA) 237 ML CAN PO SCH ×2 (09:00→17:00)
[2022-10-12] MEDS: buPROPion SR 150 MG TABLET.SA PO SCH (09:48)
[2022-10-12] MEDS: PROTEIN SUPPLEMENT (PROSTAT) 30 ML LIQUID PO SCH (09:50)
[2022-10-12 09:57] VITALS: BP 125/74
[2022-10-12] MEDS ORDERED: POTASSIUM CHLORIDE 20 MEQ TAB.PRT.SR PO ONE (10:00)
--- NOTE | 2022-10-12 10:22 | NUR ---
Per Rad DR Arndt hemoglobin too low still. Renal bx on hold.
[2022-10-12 11:24] VITALS: BP 128/72
--- NOTE | 2022-10-12 12:13 | NUR ---
Patient request to have redraw for potassium as operating room team will need correction prior to surgical biopsy of kidney. Patient also requesting to know if he can eat if the level is still below parameter for biopsy today.
--- NOTE | 2022-10-12 13:14 | NUR ---
Operating room steamer tender says renal biopsy is going to need to be outpatient.
[2022-10-12 15:10] VITALS: BP 149/76
[2022-10-12 19:54] VITALS: BP 118/74
[2022-10-12] MEDS: OLANZAPINE 5 MG TABLET PO SCH (20:19)
[2022-10-12] MEDS: ESCITALOPRAM OXALATE 10 MG TABLET PO SCH (20:19)
[2022-10-12 21:22] LABS: EOSINOPHILS % (MANUAL) 2 % (0-8); LYMPHOCYTES % (MANUAL) 35 % (20-40); MONOCYTES % (MANUAL) 14 % (2-10); NEUTROPHILS % (MANUAL) 49 % (42-75)
[2022-10-13] MEDS: IV 1/2NS 1000 ML 1,000 ML IV PRN ×2 (00:09→15:27)
[2022-10-13] MEDS: PIPERACILLIN/TAZO 2.25 G in IV DEXTROSE 5% 50 ML IV SCH (04:23)
[2022-10-13 05:31] VITALS: BP 131/76
[2022-10-13 07:22] LABS: HEMATOCRIT 30.8 % (36.7-47.1); MEAN CORPUSCULAR HEMOGLOBIN 29.3 uug (23.8-33.4); MEAN CORPUSCULAR VOLUME 87.2 fL (73.0-96.2); PLATELET COUNT (AUTO) 158 K/uL (152-348)
[2022-10-13 07:42] LABS: BILIRUBIN,TOTAL 0.5 mg/dL (0.2-1.0); CREATININE 6.7 mg/dL (0.6-1.3); MAGNESIUM 1.9 mg/dL (1.8-2.4); PHOSPHOROUS 2.8 mg/dL (2.5-4.9); POTASSIUM 3.3 mmol/L (3.5-5.1); TOTAL PROTEIN, SERUM 5.3 g/dL (6.4-8.2)
[2022-10-13] MEDS ORDERED: VANCOMYCIN IV 500 MG in IV DEXTROSE 5% 100 ML IV PRN (08:00)
[2022-10-13] MEDS: NEPRO (VANILLA) 237 ML CAN PO SCH ×2 (08:39→17:13)
[2022-10-13] MEDS: SEVELAMER CARBONATE 800 MG TABLET PO SCH ×3 (08:41→17:21)
[2022-10-13] MEDS: buPROPion SR 150 MG TABLET.SA PO SCH (08:41)
[2022-10-13] MEDS: PROTEIN SUPPLEMENT (PROSTAT) 30 ML LIQUID PO SCH (08:42)
[2022-10-13] MEDS ORDERED: POTASSIUM CHLORIDE 20 MEQ TAB.PRT.SR PO ONE (09:30)
[2022-10-13 11:15] VITALS: BP 126/75
--- NOTE | 2022-10-13 13:58 | NUR ---
0730-Upon shift exchange rounds, patient in bed asleep, no respiratory distress/SOB, patient wakes up on verbal commands, denies pain. Patient continues on HD tx as ordered by MD. No s/s of fluid overload or dehydration noted. Encouraged to use call light for help when needed with good understanding. 0900-Scheduled medication administered with no ASE noted., Patient was eval. by rehab and did well, ambulated in hallway using FWW, patient doses have poor coordination and balance control, safety precautions implemented.
--- NOTE | 2022-10-13 15:14 | NUR ---
Per Dr. Stephanie Brush, patient to have dialysis today. Per MD to input dialysis order.
[2022-10-13 15:23] VITALS: BP 136/82
--- NOTE | 2022-10-13 18:09 | NUR ---
Patient in good stable conditions, VSS. Assisted with ADLs/personal care/hygiene during shift. Patient A/Ox4, able to verbalize his needs promptly and timely. Patient free of pain during shift. Patient was dialyzed today for an hour and two minutes, per dialysis nurse, obtained 330ml output only due to dialysis access clotting issues; Dr. De La O was informed. Rec'd a call from Dr. Esquivel & per patient is scheduled to have a Perma Catheter placement in AM at 0730, to obtain consent and place patient NPO starting midnight tonight. Procedure waas explained to the patient with good verbal understanding, patient understands the need for the procedure and agrees with procedure. Consent obtained and patient to be NPO starting midnight (tonight). Endorsed properly to incoming relieving RN for proper follow up.
[2022-10-13] MEDS ORDERED: VANCOMYCIN IV 500 MG in IV DEXTROSE 5% 100 ML IV ONE (19:30)
[2022-10-13 20:18] VITALS: BP 128/78
[2022-10-13] MEDS: OLANZAPINE 5 MG TABLET PO SCH (21:28)
[2022-10-13] MEDS: ESCITALOPRAM OXALATE 10 MG TABLET PO SCH (21:28)
[2022-10-14 04:10] VITALS: BP 144/86
[2022-10-14] MEDS: IV 1/2NS 1000 ML 1,000 ML IV PRN (05:12)
--- NOTE | 2022-10-14 06:07 | NUR ---
Slept well the whole night, in no acute distress. NPO post midnight for perma cath placement in the morning. SHAKIR midline intact and patent. IVF infusing. Needs attended.
[2022-10-14] MEDS ORDERED: IOHEXOL 300MG/ML 50 ML VIAL ONE (06:28)
[2022-10-14] MEDS ORDERED: LIDOCAINE HCL 1% 20 ML VIAL ONE (06:28)
[2022-10-14] MEDS ORDERED: HEPARIN/NS 500 ML ONE (06:28)
[2022-10-14] MEDS ORDERED: CEFAZOLIN 1 G VIAL ONE (06:28)
[2022-10-14] MEDS ORDERED: HEPARIN SODIUM,PORCINE 1,000 UNITS/ML VIAL ONE ×2 (06:30→06:31)
[2022-10-14] MEDS ORDERED: SEVOFLURANE 250 ML BOTTLE ONE (07:10)
[2022-10-14] MEDS ORDERED: FENTANYL CITRATE 100 MCG/2 ML AMPUL ONE (07:10)
[2022-10-14] MEDS ORDERED: FAMOTIDINE. 20 MG/2 ML VIAL IV ONE (07:11)
[2022-10-14] MEDS ORDERED: KETAMINE HCL 500 MG/10 ML INJ ONE (07:11)
[2022-10-14] MEDS ORDERED: IOPAMIDOL 15 ML VIAL IT ONE (07:15)
--- NOTE | 2022-10-14 07:18 | NUR ---
Transferred to OR via bed for Perma cath placement.
[2022-10-14] MEDS: PROTEIN SUPPLEMENT (PROSTAT) 30 ML LIQUID PO SCH (08:00)
[2022-10-14] MEDS: SEVELAMER CARBONATE 800 MG TABLET PO SCH ×3 (08:00→17:39)
[2022-10-14] MEDS: NEPRO (VANILLA) 237 ML CAN PO SCH ×2 (09:00→17:36)
[2022-10-14] MEDS: buPROPion SR 150 MG TABLET.SA PO SCH (09:00)
--- NOTE | 2022-10-14 09:22 | NUR ---
morning med not administered.pt npo/off unit for procedure
[2022-10-14 20:17] VITALS: BP 132/87
[2022-10-14] MEDS: ESCITALOPRAM OXALATE 10 MG TABLET PO SCH (20:28)
[2022-10-14] MEDS: OLANZAPINE 5 MG TABLET PO SCH (20:28)
[2022-10-15] MEDS: IV 1/2NS 1000 ML 1,000 ML IV PRN (03:01)
[2022-10-15 04:22] VITALS: BP 114/74
--- NOTE | 2022-10-15 05:59 | NUR ---
Patient is stable, slept well the whole night. AAO x3, no acute distress observed. Rt chest perma cath with dressing intact, no bleeding noted to site. SHAKIR midline intact, IVF infusing well. Needs attended.
[2022-10-15] MEDS: PROTEIN SUPPLEMENT (PROSTAT) 30 ML LIQUID PO SCH (08:00)
[2022-10-15] MEDS: buPROPion SR 150 MG TABLET.SA PO SCH (09:34)
[2022-10-15] MEDS: NEPRO (VANILLA) 237 ML CAN PO SCH (09:35)
[2022-10-15 12:07] VITALS: BP 128/82
--- NOTE | 2022-10-15 15:00 | NUR ---
Dialysis Notes: Temp Rt Femoral HD catheter discontinued without any difficulty, tip of catheter intact. Pressure applied to site X10 mins, no bleeding, hematoma noted to femoral site, gauze dressing applied secured with tape. Endorsed to Lorena KELLY.
[2022-10-15 16:22] VITALS: BP 134/73
[2022-10-15] MEDS ORDERED: VANCOMYCIN IV 500 MG in IV DEXTROSE 5% 100 ML IV ONE (17:00)
[2022-10-15] MEDS: SEVELAMER CARBONATE 800 MG TABLET PO SCH (20:27)
[2022-10-15] MEDS: ESCITALOPRAM OXALATE 10 MG TABLET PO SCH (20:28)
[2022-10-15] MEDS: OLANZAPINE 5 MG TABLET PO SCH (20:28)
--- NOTE | 2022-10-15 20:30 | NUR ---
patient in bed aaox4. patient took medication with water . checked right femoral groin post Steve catheter site CDI ,NO hematoma site soft and no active bleeding , right foot with good CMS . RIGHT SUBCLAVIAN DEANDRE CATHETER INTACT CDI
[2022-10-15 20:34] VITALS: BP 112/47
--- NOTE | 2022-10-16 01:00 | NUR ---
sleeping in bed no respiratory distress noted breathing even and unlabored patient easily arousable .
[2022-10-16 06:18] LABS: HEMATOCRIT 23.8 % (36.7-47.1); MEAN CORPUSCULAR HEMOGLOBIN 29.3 uug (23.8-33.4); PLATELET COUNT (AUTO) 186 K/uL (152-348)
[2022-10-16 06:42] LABS: BILIRUBIN,TOTAL 0.3 mg/dL (0.2-1.0); CREATININE 6.8 mg/dL (0.6-1.3); PHOSPHOROUS 3.2 mg/dL (2.5-4.9); POTASSIUM 3.7 mmol/L (3.5-5.1); TOTAL PROTEIN, SERUM 4.9 g/dL (6.4-8.2)
--- NOTE | 2022-10-16 07:00 | NUR ---
endorsed to day shift RN as per patient his for possible d/c this am around 10:00. his brother is coming to see him and bring him home.
[2022-10-16 07:40] LABS: MAGNESIUM 1.8 mg/dL (1.8-2.4)
[2022-10-16] MEDS: SEVELAMER CARBONATE 800 MG TABLET PO SCH ×2 (08:43→11:53)
[2022-10-16] MEDS: PROTEIN SUPPLEMENT (PROSTAT) 30 ML LIQUID PO SCH (08:44)
[2022-10-16] MEDS: buPROPion SR 150 MG TABLET.SA PO SCH (08:45)
--- NOTE | 2022-10-16 10:00 | NUR ---
Rcvd pt. in bed sleeping and resting comfortably. Vital signs WNL. No SOB at this time.Denies any pain. Pt. ate breafast 60-70 %. Routine meds given and pt. tolerated it well.
[2022-10-16] MEDS ORDERED: EPOETIN ALFA-EPBX 10,000 UNIT/ML VIAL SQ ONE (10:30)
[2022-10-16 11:50] VITALS: BP 129/81
[2022-10-16] MEDS ORDERED: BUPR150T10 PO (13:59)
[2022-10-16] MEDS ORDERED: OLAN5TAB70 PO (13:59)
[2022-10-16] MEDS ORDERED: SEVE800T7 PO (13:59)
[2022-10-16] MEDS ORDERED: PROT30LI PO (13:59)
[2022-10-16 16:00] VITALS: BP 128/63
[2022-10-16] MEDS ORDERED: METOCLOPRAMIDE HCL 10 MG/2 ML VIAL IV ONE (17:04)
[2022-10-16] MEDS ORDERED: ONDANSETRON 4 MG/2 ML VIAL IV ONE (17:04)
[2022-10-16] MEDS ORDERED: NEOSTIGMINE METHYLSULFATE 10 MG/10 ML VIAL IM ONE (17:04)
[2022-10-16] MEDS ORDERED: LIDOCAINE-MPF 2% 5 ML VIAL IJ ONE (17:04)
[2022-10-16] MEDS ORDERED: DEXAMETHASONE SOD PHOSPHATE 4 MG INJ IV ONE (17:04)
[2022-10-16] MEDS ORDERED: PROPOFOL 200 MG/20 ML BOTTLE IV ONE (17:04)
[2022-10-16] MEDS ORDERED: SEVOFLURANE 250 ML BOTTLE IH ONE (17:04)
[2022-10-16] MEDS ORDERED: SUCCINYLCHOLINE CHLORIDE 200 MG/10 ML VIAL IV ONE (17:04)
--- NOTE | 2022-10-16 18:17 | NUR ---
Pt. was discharged home. Pt. arranged Uber/Lyft transportation to pick him up. Discharge instruction given and verbalized understanding especially the hemodialysis set up post discharge. All belongings accounted for. FRUIT HARVEST MACHINE OPERATOR wheeled down the pt. until the uber/lyft came. Brother made aware. Pt is stable.
== END 2022-10-16 17:05 | disposition home health service (06) | DRG 673 ==
LOC: ER 22:57 → TELE-TD3 10-03 01:49 → MEDSURG3 10-06 08:02
PROVIDERS: ADMIT Internal Medicine; ATTEND Internal Medicine
PROC: 5A1D70Z Performance of Urinary Filtration, Intermittent, Less than 6 Hours Per Day (ICD-10-PCS; principal; 2022-10-03)
PROC: 30243N1 Transfusion of Nonautologous Red Blood Cells into Central Vein, Percutaneous Approach (ICD-10-PCS; 2022-10-05)
PROC: 06HY33Z Insertion of Infusion Device into Lower Vein, Percutaneous Approach (ICD-10-PCS; 2022-10-06)
PROC: 05H633Z Insertion of Infusion Device into Left Subclavian Vein, Percutaneous Approach (ICD-10-PCS; 2022-10-08)
PROC: B547ZZA Ultrasonography of Left Subclavian Vein, Guidance (ICD-10-PCS; 2022-10-08)
PROC: 0JH63XZ Insertion of Tunneled Vascular Access Device into Chest Subcutaneous Tissue and Fascia, Percutaneous Approach (ICD-10-PCS; 2022-10-14)
PROC: 02HV33Z Insertion of Infusion Device into Superior Vena Cava, Percutaneous Approach (ICD-10-PCS; 2022-10-14)
PROC: B518YZA Fluoroscopy of Superior Vena Cava using Other Contrast, Guidance (ICD-10-PCS; 2022-10-14)
DX: N17.0 Acute kidney failure with tubular necrosis (principal); E43 Unspecified severe protein-calorie malnutrition; G92.8 Other toxic encephalopathy; N39.0 Urinary tract infection, site not specified; E87.1 Hypo-osmolality and hyponatremia; E87.5 Hyperkalemia; D63.8 Anemia in other chronic diseases classified elsewhere; E66.01 Morbid (severe) obesity due to excess calories; E83.51 Hypocalcemia; E86.0 Dehydration; E88.09 Other disorders of plasma-protein metabolism, not elsewhere classified; Z20.822 Contact with and (suspected) exposure to COVID-19; N18.9 Chronic kidney disease, unspecified; R53.1 Weakness; F29 Unspecified psychosis not due to a substance or known physiological condition; R77.8 Other specified abnormalities of plasma proteins; M89.8X9 Other specified disorders of bone, unspecified site; Z68.27 Body mass index [BMI] 27.0-27.9, adult
CPT/HCPCS: 36415; 70030-TC; 70450; 71045; 71250; 76705; 76770; 76942; 83605; 83690; 83735; 83970; 84100; 84132; 84155; 84156; 84165; 84300; 84443; 84484; 85025; 85651; 85730; 86038; 86160; 86706; 86803; 86850; 86870; 86900; 86901; 86920; 87040; 87340; 90937; 93005; 93307; A4649; A4663; C1758; G0378; J0330; J0610; J0690; J0885; J1100; J1644; J1815; J1956; J2150; J2405; J2543; J2765; J3010; J3370; J3490; J7040; J7060; P9016; Q9967